=== PATIENT | male | born 1980 | race African-American/Black ===

== ENCOUNTER 2020-08-18 15:22 | Observation (INO) ==
[2020-08-18 15:53] LABS: Basophils # 0.1 10*3/uL (0.0-0.2); Basophils % 0.5 % (0.0-0.8); Eosinophils # 0.2 10*3/uL (0.0-0.87); Eosinophils % 1.1 % (0.00-10.9); Hematocrit 48.4 VOL% (42.0-52.0); Hemoglobin 16.4 GM/DL (14.0-18.0); Immature Granulocytes % 0.4 %; Immature Granulocytes Absolute 0.07 #; Lymphocytes # 4.9 10*3/uL (1.4-4.0); Lymphocytes % 30.7 % (21.2-54.2); Mean Corpuscular HGB Conc 33.9 GM/DL (32-36); Mean Corpuscular Volume 85.5 FL (87-102); Mean Platelet Volume 9.2 FL (9.6-12.0); Monocytes % 8.5 % (1.7-12.7); Neutrophils % 58.8 % (38.7-73.9); Platelet Count 483 T/CUMM (130-400); Red Blood Count 5.66 MC/CUMM (3.8-5.5); Red Cell Distribution Width 13.1 % (9.3-17.3)
[2020-08-18 16:10] LABS: Albumin 3.5 G/DL (3.4-5.0); Bilirubin,Total 0.9 MG/DL (0.2-1.0); Calcium 8.8 MG/DL (8.5-10.1); Potassium 2.9 MMOL/L (3.5-5.1); Total Protein 7.8 G/DL (6.4-8.2)
[2020-08-18] MEDS ORDERED: POTASSIUM CHLORIDE 20 MEQ TABLET PO STA (16:25)
[2020-08-18] MEDS ORDERED: POTASSIUM CHLORIDE 20 MEQ PACK ONE ×2 (16:30→17:45)
[2020-08-18] MEDS ORDERED: DILTIAZEM 50 MG/10 ML VIAL IV STA ×2 (16:34→17:44)
[2020-08-18] MEDS ORDERED: DILTIAZEM 100 MG VIAL.ADD IV ONE (16:57)
[2020-08-18] MEDS: DILTIAZEM INJ 100 MG in SODIUM CHLORIDE 0.9% 100 ML IV SCH ×2 (17:10→23:12)
[2020-08-18] MEDS ORDERED: ACETAMINOPHEN 325 MG TABLET PO PRN (17:28)
[2020-08-18] MEDS ORDERED: POTASSIUM CHLORIDE 20 MEQ TABLET PO ONE (17:28)
[2020-08-18] MEDS ORDERED: DEXTROSE 50% 25 GM/50 ML VIAL IV PRN ×2 (17:28→20:41)
[2020-08-18] MEDS ORDERED: ONDANSETRON 4 MG/2 ML VIAL IV PRN (17:28)
[2020-08-18] MEDS ORDERED: GLUCAGON 1 MG VIAL IM PRN ×2 (17:28→20:41)
[2020-08-18] MEDS ORDERED: POTASSIUM CHLORIDE 20 MEQ/15 ML UDCUP PO ONE (17:45)
[2020-08-18 18:00] LABS: Risk Ratio 4.85; VLDL CHOLESTEROL 33.8 MG/DL
[2020-08-18] MEDS ORDERED: METOPROLOL TARTRATE 5 MG/5 ML VIAL IV ONE (18:15)
[2020-08-18] MEDS ORDERED: ASCORBIC ACID 500 MG TABLET PO SCH (18:30)
[2020-08-18] MEDS ORDERED: POTASSIUM CHLORIDE 20 MEQ TABLET PO PRN ×2 (18:41→21:00)
[2020-08-18 19:31] LABS: Bacteria,Urine Occasional /HPF (Few); Bilirubin,Urine Negative (Negative); Blood, Urine Negative (Negative); Glucose,Urine (UA) >=500 mg/dL (Negative); Ketones,Urine Negative (Negative); Mucus,Urine Occasional /LPF (Occasional); Nitrite,Urine Negative (Negative); Protein,Urine Negative; RBC,Urine 1 /HPF (0-4); Squamous Epithelial Cell,Urine Occasional /HPF (0-10); Urine Appearance CLEAR (Clear); Urine Color Yellow (Yellow); Urine Specific Gravity 1.023 (1.001-1.035); Urine Urobilinogen < 2.0 EU/DL (0.2-1.0); WBC,Urine 1 /HPF (0-6)
[2020-08-18 19:41] LABS: Barbiturates Screen,Urine Negative (Negative); Benzodiazepines Screen,Urine Negative (Negative); Cannabinoid Screen,Urine Negative (Negative); Opiate Screen,Urine Negative (Negative); Phencyclidine Screen,Urine Negative (Negative)
[2020-08-18] MEDS: ASCORBIC ACID 500 MG TABLET PO SCH (20:32)
[2020-08-18] MEDS: METOPROLOL SUCCINATE XL 100 MG TABLET PO SCH (20:32)
[2020-08-18] MEDS: APIXABAN 5 MG TABLET PO SCH (20:32)
[2020-08-18] MEDS: INSULIN LISPRO 100 UNIT/ML SUBCUT SCH (20:33)
[2020-08-18] MEDS: POTASSIUM CHLORIDE 20 MEQ/15 ML UDCUP PER TUBE PRN (21:03)
[2020-08-18 22:03] LABS: Calcium 8.5 MG/DL (8.5-10.1); Potassium 3.1 MMOL/L (3.5-5.1)
[2020-08-19] MEDS: POTASSIUM CHLORIDE 20 MEQ/15 ML UDCUP PER TUBE PRN ×3 (01:19→05:20)
[2020-08-19 04:45] LABS: Basophils # 0.1 10*3/uL (0.0-0.2); Basophils % 0.5 % (0.0-0.8); Eosinophils # 0.2 10*3/uL (0.0-0.87); Eosinophils % 1.2 % (0.00-10.9); Hematocrit 47.5 VOL% (42.0-52.0); Hemoglobin 15.8 GM/DL (14.0-18.0); Immature Granulocytes % 0.6 %; Immature Granulocytes Absolute 0.09 #; Lymphocytes # 3.9 10*3/uL (1.4-4.0); Lymphocytes % 26.9 % (21.2-54.2); Mean Corpuscular HGB Conc 33.3 GM/DL (32-36); Mean Corpuscular Volume 86.5 FL (87-102); Mean Platelet Volume 9.4 FL (9.6-12.0); Monocytes % 7.8 % (1.7-12.7); Platelet Count 426 T/CUMM (130-400); Red Blood Count 5.49 MC/CUMM (3.8-5.5); Red Cell Distribution Width 13.2 % (9.3-17.3); White Blood Count 14.5 T/CUMM (4-12)
[2020-08-19 05:10] LABS: Calcium 8.3 MG/DL (8.5-10.1); Potassium 3.8 MMOL/L (3.5-5.1)
[2020-08-19] MEDS: DILTIAZEM INJ 100 MG in SODIUM CHLORIDE 0.9% 100 ML IV SCH ×2 (05:22→16:18)
[2020-08-19] MEDS: INSULIN LISPRO 100 UNIT/ML SUBCUT SCH ×4 (07:36→20:32)
[2020-08-19] MEDS: ASCORBIC ACID 500 MG TABLET PO SCH ×2 (08:06→20:31)
[2020-08-19] MEDS: ASPIRIN EC 81 MG TABLET PO SCH (08:06)
[2020-08-19] MEDS: METOPROLOL SUCCINATE XL 100 MG TABLET PO SCH ×2 (08:06→20:32)
[2020-08-19] MEDS: LOSARTAN 50 MG TABLET PO SCH ×2 (08:06→20:32)
[2020-08-19] MEDS: APIXABAN 5 MG TABLET PO SCH ×2 (08:06→20:31)
[2020-08-19] MEDS ORDERED: MAGNESIUM SULF RIDER 4 GM in PREMIX 1 EACH IV PRN (08:07)
[2020-08-19] MEDS ORDERED: MAGNESIUM SULF RIDER 2 GM in PREMIX 1 EACH IV PRN (08:07)
[2020-08-19] MEDS: DILTIAZEM 60 MG TABLET PO SCH ×3 (08:12→20:31)
[2020-08-19] MEDS ORDERED: CHLORTHALIDONE 25 MG TABLET PO SCH (09:00)
[2020-08-19] MEDS ORDERED: ATORVASTATIN 40 MG TABLET PO SCH (21:00)
[2020-08-20 07:03] LABS: Basophils # 0.1 10*3/uL (0.0-0.2); Basophils % 0.6 % (0.0-0.8); Eosinophils # 0.2 10*3/uL (0.0-0.87); Eosinophils % 1.5 % (0.00-10.9); Hematocrit 44.1 VOL% (42.0-52.0); Hemoglobin 14.8 GM/DL (14.0-18.0); Immature Granulocytes % 0.5 %; Immature Granulocytes Absolute 0.06 #; Lymphocytes # 3.6 10*3/uL (1.4-4.0); Lymphocytes % 30.8 % (21.2-54.2); Mean Corpuscular HGB Conc 33.6 GM/DL (32-36); Mean Corpuscular Volume 87.8 FL (87-102); Mean Platelet Volume 9.8 FL (9.6-12.0); Monocytes % 8.7 % (1.7-12.7); Neutrophils % 57.9 % (38.7-73.9); Platelet Count 410 T/CUMM (130-400); Red Blood Count 5.02 MC/CUMM (3.8-5.5); Red Cell Distribution Width 13.2 % (9.3-17.3); White Blood Count 11.8 T/CUMM (4-12)
[2020-08-20 07:16] LABS: Calcium 8.3 MG/DL (8.5-10.1); Potassium 3.2 MMOL/L (3.5-5.1)
[2020-08-20] MEDS ORDERED: POTASSIUM CHLORIDE 20 MEQ TABLET PO ONE (07:25)
[2020-08-20 07:30] VITALS: BP 115/63
[2020-08-20] MEDS: LOSARTAN 50 MG TABLET PO SCH (08:58)
[2020-08-20] MEDS: ASPIRIN EC 81 MG TABLET PO SCH (08:58)
[2020-08-20] MEDS: ASCORBIC ACID 500 MG TABLET PO SCH (08:58)
[2020-08-20] MEDS: METOPROLOL SUCCINATE XL 100 MG TABLET PO SCH (08:59)
[2020-08-20] MEDS: APIXABAN 5 MG TABLET PO SCH (08:59)
[2020-08-20] MEDS: INSULIN LISPRO 100 UNIT/ML SUBCUT SCH ×2 (08:59→11:36)
[2020-08-20] MEDS ORDERED: DILTIAZEM CD 120 MG CAPSULE PO SCH (09:00)
== END 2020-08-20 11:52 | disposition home or self-care (01) ==
LOC: N.EDINP 15:22 → N.ED 15:22 → N.ICU 18:15 → N.TELEN 08-19 13:40
PROVIDERS: ADMIT Internal Medicine; ATTEND Internal Medicine